=== PATIENT | male | born 1985 | race Caucasian/White ===

== ENCOUNTER 2021-06-11 11:45 | Emergency (ER) | payer MEDICAID, OTHER ==
[~2021-06-11] VITALS: Ht 175.3 cm; Wt 77.1 kg
[2021-06-11 12:35] VITALS: BP 115/70
--- NOTE | 2021-06-11 12:44 | NUR ---
NOVEL SWAB COLLECTED AND WALKED TO LAB
[2021-06-11 13:14] VITALS: BP 123/75
--- NOTE | 2021-06-11 13:14 | NUR ---
Patient discharged with v/s stable. Written and verbal after care instructions given and explained. Patient verbalized understanding. Ambulatory with steady gait. All questions addressed prior to discharge. Advised to follow up with PMD.
== END 2021-06-11 13:14 | disposition home or self-care (01) ==
LOC: MED 11:45
DX: B34.9 Viral infection, unspecified (principal); Z20.822 Contact with and (suspected) exposure to COVID-19
CPT/HCPCS: 99283; U0003

== ENCOUNTER 2021-07-10 12:50 | Emergency (ER) | payer MEDICAID, OTHER ==
[~2021-07-10] VITALS: Ht 167.6 cm; Wt 77.1 kg
[2021-07-10 12:53] VITALS: BP 135/76
--- NOTE | 2021-07-10 12:59 | NUR ---
PT ASSISSTED TO BED 10
--- NOTE | 2021-07-10 13:02 | NUR ---
36YO M C/O WORSENING HEADACHE X 1 WEEK. PAIN 10/10, WITH NO AGGRAVATING FACTORS. ALSO COMPLAINS OF DIZZINESS AND POLYDIPSIA. PT STATES HE FEELS DEHYDRATED. DENIES N/V/D, TOOK ALEVE 30MINS AGO WHICH PROVIDED MILD RELIEF.SKIN IS PINK/WARM/DRY; AAOX4 WITH EVEN AND STEADY GAIT; LUNGS CLEAR BL; HR EVEN AND REGULAR; PT DENIES ANY FEVER, CP, SOB, OR COUGH AT THIS TIME; VSS; PATIENT POSITIONED FOR COMFORT; HOB ELEVATED; BEDRAILS UP X2; BED DOWN. ER MD MADE AWARE OF PT STATUS. PMH: NONE MEDS: NONE NKA
--- NOTE | 2021-07-10 13:06 | NUR ---
MAURIZIO FROST AT THE BEDSIDE
[2021-07-10] MEDS ORDERED: CYCLOBENZAPRINE 10 MG TAB PO ONE (13:10)
[2021-07-10] MEDS ORDERED: KETOROLAC 60 MG/2 ML VIAL IM ONE (13:10)
[2021-07-10] MEDS ORDERED: CYCLOBENZAPRINE 10 MG TAB ONE (13:19)
[2021-07-10] MEDS ORDERED: CRUSHER, PILL MC ONE (13:22)
--- NOTE | 2021-07-10 13:34 | NUR ---
PATIENT STATES RELIEF FROM PAIN 0/10, FEELS RELAXED.
[2021-07-10] MEDS ORDERED: CYCL-654 PO (14:05)
[2021-07-10 14:11] VITALS: BP 130/88
--- NOTE | 2021-07-10 14:13 | NUR ---
Patient discharged with v/s stable, 0/10 pain. Written and verbal after care instructions given and explained. Patient alert, oriented and verbalized understanding of instructions. Ambulatory with steady gait. Picked up by family. All questions addressed prior to discharge. ID band removed. Patient advised to follow up with PMD. Rx of given. Patient educated on indication of medication including possible reaction and side effects. Opportunity to ask questions provided and answered.
== END 2021-07-10 14:11 | disposition home or self-care (01) ==
LOC: MED 12:50
DX: G44.209 Tension-type headache, unspecified, not intractable (principal); M62.838 Other muscle spasm; Z79.899 Other long term (current) drug therapy
CPT/HCPCS: 96372; 99283; J1885

== ENCOUNTER 2021-12-15 11:05 | Emergency (ER) | payer OTHER ==
[~2021-12-15] VITALS: Ht 172.7 cm; Wt 78.6 kg
[~2021-12-15 11:05] MED LIST: CYCL-654 PO
[2021-12-15 11:27] VITALS: BP 112/79
--- NOTE | 2021-12-15 11:34 | NUR ---
PT AMB TO BED 9.
--- NOTE | 2021-12-15 11:42 | NUR ---
36 Y/O MALE C/O ABSCESS TO LEFT FOREARM X 3DAYS. PT REPORTS USING HEROIN 3 DAYS AGO WHICH "CAUSED THE ABSCESS TO FORM". PT REPORTS YESTERDAY, PURULENT PUS LEAKED OUT. NOTED SMILAR FINDINGS TODAY. PT C/O BURNING PAIN TO LEFT AC 12/30. REDDENED AND WARM SWELLING TO LEFT AC NOTED WITH MULTIPLE SWOLLEN AREAS AROUND LEFT ARM. DENIES N/V/D OR CHILLS. AOX4. RESPIRATIONS EVEN AND UNLABORED. PT REPORTS TAKING UNKNOWN DOSE AND NAME ANTIBIOTICS HE "JUST BOUGHT FROM THE STORE" REPORTS TAKING "ANTIBIOTICS" 3XDAY FOR 3DAYS. LAST HEROIN USE INTRANASALLY LAST NIGHT, LAST INJECTION X3DAYS AGO. NKA PMH: DRUG USE
--- NOTE | 2021-12-15 12:17 | NUR ---
KIM WILCOX AT BEDSIDE.
[2021-12-15] MEDS ORDERED: KETOROLAC 30 MG/ML VIAL IM ONE (12:40)
[2021-12-15] MEDS ORDERED: LIDOCAINE MPF 1% 10 MG/ML VIAL INJ ONE (12:40)
--- NOTE | 2021-12-15 13:40 | NUR ---
KIM SCOTTTO AT BEDSIDE FOR PROCEDURE.
--- NOTE | 2021-12-15 13:45 | NUR ---
Yeelna rosenbaum in [facility] - 12/15/21 at 1345 by HARISH KIM WILCOX AT [facility] FOR PROCEDANDREZE
[2021-12-15] MEDS ORDERED: IBUP-2213 PO (14:06)
[2021-12-15] MEDS ORDERED: SULF-59 PO (14:06)
[2021-12-15] MEDS ORDERED: CEPH-588 PO (14:06)
[2021-12-15 15:16] VITALS: BP 121/74
--- NOTE | 2021-12-15 15:17 | NUR ---
Patient discharged with v/s stable. Written and verbal after care instructions given and explained. Patient alert, oriented and verbalized understanding of instructions. Ambulatory with steady gait. All questions addressed prior to discharge. ID band removed. Patient advised to follow up with PMD. Rx of BACTRIM, KELFEX, MOTRIN given. Patient educated on indication of medication including possible reaction and side effects. Opportunity to ask questions provided and answered.
== END 2021-12-15 15:17 | disposition home or self-care (01) ==
LOC: MED 11:05
DX: L03.114 Cellulitis of left upper limb (principal); F11.10 Opioid abuse, uncomplicated
CPT/HCPCS: 10060; 96372; 99284; J1885; J2001

== ENCOUNTER 2021-12-17 16:07 | Emergency (ER) | payer OTHER ==
[~2021-12-17] VITALS: Ht 172.7 cm; Wt 79.8 kg
[~2021-12-17 16:07] MED LIST changes: +CEPH-588 PO; +IBUP-2213 PO; +SULF-59 PO
[2021-12-17 16:27] VITALS: BP 135/97
--- NOTE | 2021-12-17 17:02 | NUR ---
PT AMBULATED TO ER BED 11 WITH A STEADY GAIT.
[2021-12-17 17:10] VITALS: BP 130/84
--- NOTE | 2021-12-17 17:10 | NUR ---
Patient discharged with v/s stable. Written and verbal after care instructions given FOR WOUND CARE and explained. Patient verbalized understanding. Ambulatory with steady gait. All questions addressed prior to discharge. Advised to follow up with PMD.
== END 2021-12-17 17:10 | disposition home or self-care (01) ==
LOC: MED 16:07
DX: M25.522 Pain in left elbow (principal); Z79.899 Other long term (current) drug therapy; Z48.01 Encounter for change or removal of surgical wound dressing
CPT/HCPCS: 99281